=== PATIENT | female | born 1990 | race American Indian/Alaskan Native ===

== ENCOUNTER 2017-03-16 10:50 | Emergency (ER) | payer SELFPAY ==
[2017-03-16] MEDS ORDERED: TYLENOL PO ONE (12:45)
[2017-03-16 13:51] LABS: Bacteria,Urine 1+ /HPF (Negative); Bilirubin,Urine NEG (Negative); Blood,Urine LG (Negative); Ketones,Urine NEG (Negative); Leukocyte Esterase,Urine LG (Negative); Nitrite,Urine NEG (Negative)
[2017-03-16 13:54] LABS: WBC,Urine > 182.0 /HPF (0.0-6.0)
[2017-03-16] MEDS ORDERED: NACL 0.9% 1000 ML 1,000 ML IV ONE (15:55)
[2017-03-16] MEDS ORDERED: TORADOL IV ONE (15:55)
[2017-03-16 16:30] LABS: Basophils % (Auto) 0.5 % (0.0-1.8); Eosinophils % (Auto) 0.1 % (0.0-4.3); Hematocrit 36.3 % (30.3-42.9); Hemoglobin 11.9 gm/dl (10.1-14.3); Mean Corpuscular HGB Conc 33 % (30-34); Mean Corpuscular Hemoglobin 30 pg (28-32); Mean Corpuscular Volume 90 fl (79-97); Platelet Count 257 K/mm3 (140-440); Red Blood Count 4.03 M/mm3 (3.65-5.03); Red Cell Distribution Width 14.5 % (13.2-15.2); White Blood Count 14.6 K/mm3 (4.5-11.0)
[2017-03-16] MEDS ORDERED: KEFLEX PO ONE (16:30)
--- NOTE | 2017-03-16 16:34 | Emergency Department Report ---
- General Chief Complaint: Upper Respiratory Infection Stated Complaint: FLU LIKE SYMPTOMS Time Seen by Provider: 03/16/17 15:49 Source: patient Mode of arrival: Ambulatory Limitations: No Limitations - History of Present Illness Initial Comments: 27-year-old female with a past medical history of hyperthyroidism (subclinical and not currently on medication) presents to the hospital with complaints of flulike symptoms for the past 4-5 days. Positive cough productive of yellow sputum, intermittent fevers, decreased food intake for the past 2 days. Yesterday patient had an episode of profuse sweating and near-syncope. She does not obtain a sneeze at this time. She complains of anterior chest pain with coughing that improved at the taken Tylenol. Last night patient had several episodes of vomiting. No diarrhea or abdominal pain reported. No sick contacts or recent travel. Patient is currently on her menstrual cycle. She did not receive a flu shot - Related Data Previous Rx's Medication Instructions Recorded Last Taken Type Loratadine [Claritin] 10 mg PO DAILY #30 tablet 03/03/13 Unknown Rx RX: Prednisone 20 mg PO QDAY #5 tablet 03/03/13 Unknown Rx RX: Triamcinolone 0.1% [Kenalog 1 applic TP TID #60 tube 03/03/13 Unknown Rx 0.1% CREAM] hydrOXYzine HCL [Atarax] 25 mg PO Q6HR PRN #30 tablet 03/03/13 Unknown Rx Benzonatate [Tessalon Perles] 100 mg PO Q8HR #30 capsule 03/16/17 Unknown Rx Cephalexin [Keflex] 500 mg PO Q12HR #14 cap 03/16/17 Unknown Rx Ibuprofen [Motrin] 600 mg PO Q8H PRN #30 tablet 03/16/17 Unknown Rx Ondansetron [Zofran Odt] 4 mg PO Q8HR PRN #20 tab.rapdis 03/16/17 Unknown Rx Allergies Allergy/AdvReac Type Severity Reaction Status Date / Time No Known Allergies Allergy Unverified 03/03/13 08:46 ED Review of Systems ROS: Stated complaint: FLU LIKE SYMPTOMS Other details as noted in HPI Comment: All other systems reviewed and negative Other: Constitutional: As per HPI ENT: No ear pain or throat pain Neck: Denies pain Respiratory:as per hpi Cardiovascular: Denies palpitations, syncope GI: Denies abdominal pain, diarrhea : Denies dysuria Musculoskeletal: Denies back pain, joint swelling Skin: Denies rash, lesions, erythema Neurologic: Denies headache, numbness, weakness Psychiatric: Denies suicidal ideation, hallucinations ED Past Medical Hx - Past Medical History Previous Medical History?: Yes Additional medical history: hyperthyroidism, eczema - Surgical History Past Surgical History?: Yes Additional Surgical History: x 2 - Social History Smoking Status: Former Smoker Substance Use Type: Alcohol, Marijuana, Prescribed, Other - Medications Home Medications: Home Medications Medication Instructions Recorded Confirmed Last Taken Type Loratadine [Claritin] 10 mg PO DAILY #30 tablet 03/03/13 Unknown Rx RX: Prednisone 20 mg PO QDAY #5 tablet 03/03/13 Unknown Rx RX: Triamcinolone 0.1% [Kenalog 1 applic TP TID #60 tube 03/03/13 Unknown Rx 0.1% CREAM] hydrOXYzine HCL [Atarax] 25 mg PO Q6HR PRN #30 tablet 03/03/13 Unknown Rx Benzonatate [Tessalon Perles] 100 mg PO Q8HR #30 capsule 03/16/17 Unknown Rx Cephalexin [Keflex] 500 mg PO Q12HR #14 cap 03/16/17 Unknown Rx Ibuprofen [Motrin] 600 mg PO Q8H PRN #30 tablet 03/16/17 Unknown Rx Ondansetron [Zofran Odt] 4 mg PO Q8HR PRN #20 tab.rapdis 03/16/17 Unknown Rx ED Physical Exam - General Limitations: No Limitations - Other Other exam information: General: No limitations, patient is alert in no acute distress Head exam: Atraumatic, normocephalic Eyes exam: Normal appearance, pupils equal reactive to light, extraocular movements intact ENT: Moist mucous membrane, normal oropharynx, no exudate Neck exam: Normal inspection, full range of motion, no meningismus nontender Respiratory exam: Clear to auscultation bilateral, no wheezes, rales, crackles Cardiovascular: Normal rate and rhythm, normal heart sounds Abdomen: Soft, nondistended, and nontender, with normal bowel sounds, no rebound, or guarding Extremity: Full range of motion normal inspection no deformity Back: Normal Inspection, full range of motion, no tenderness Neurologic: Alert, oriented x3, cranial nerves intact, no motor or sensory deficit Psychiatric: normal affect, normal mood Skin: Warm, dry, intact ED Course Vital Signs 03/16/17 03/16/17 03/16/17 12:40 16:29 17:55 Temperature 100.7 F H 98.1 F 97.9 F Pulse Rate 107 H 95 H Respiratory 16 16 Rate Blood Pressure 112/80 Blood Pressure 117/79 [Right] O2 Sat by Pulse 100 100 Oximetry - Reevaluation(s) Reevaluation #1: 03/16/17 16:34 Patient treated with normal saline, Toradol, Keflex ED Medical Decision Making - Lab Data Result diagrams: 03/16/17 12:45 03/16/17 12:45 Lab Results 03/16/17 03/16/17 03/16/17 Range/Units 12:45 12:45 13:27 WBC 14.6 H (4.5-11.0) K/mm3 RBC 4.03 (3.65-5.03) M/mm3 Hgb 11.9 (10.1-14.3) gm/dl Hct 36.3 (30.3-42.9) % MCV 90 (79-97) fl MCH 30 (28-32) pg MCHC 33 (30-34) % RDW 14.5 (13.2-15.2) % Plt Count 257 (140-440) K/mm3 Lymph % (Auto) 12.6 L (13.4-35.0) % [place] % (Auto) 14.7 H (0.0-7.3) % Eos % (Auto) 0.1 (0.0-4.3) % Baso % (Auto) 0.5 (0.0-1.8) % Lymph # 1.8 (1.2-5.4) K/mm3 Independence # 2.2 H (0.0-0.8) K/mm3 Eos # 0.0 (0.0-0.4) K/mm3 Baso # 0.1 (0.0-0.1) K/mm3 Seg Neutrophils % 72.1 H (40.0-70.0) % Seg Neutrophils # 10.5 H (1.8-7.7) K/mm3 Sodium 136 L (137-145) mmol/L Potassium 3.3 L (3.6-5.0) mmol/L Chloride 95.7 L (98-107) mmol/L Carbon Dioxide 23 (22-30) mmol/L Anion Gap 21 mmol/L BUN 7 (7-17) mg/dL Creatinine 0.8 (0.7-1.2) mg/dL Estimated GFR > 60 ml/min BUN/Creatinine Ratio 9 % Glucose 109 H (65-100) mg/dL Calcium 9.2 (8.4-10.2) mg/dL Total Bilirubin (0.1-1.2) mg/dL Direct Bilirubin (0-0.2) mg/dL Indirect Bilirubin mg/dL AST (5-40) units/L ALT (7-56) units/L Alkaline Phosphatase (35-129) units/L Total Protein (6.3-8.2) g/dL Albumin (3.9-5) g/dL Albumin/Globulin Ratio % Urine Color Yellow (Yellow) Urine Turbidity Clear (Clear) Urine pH 6.0 (5.0-7.0) Ur Specific Rewey 1.006 (1.003-1.030) Urine Protein 30 mg/dl (Negative) mg/dL Urine Glucose (UA) Neg (Negative) mg/dL Urine Ketones Neg (Negative) mg/dL Urine Blood Lg (Negative) Urine Nitrite Neg (Negative) Urine Bilirubin Neg (Negative) Urine Urobilinogen 4.0 (<2.0) mg/dL Ur Leukocyte Esterase Lg (Negative) Urine WBC (Auto) > 182.0 H (0.0-6.0) /HPF Urine RBC (Auto) 13.0 (0.0-6.0) /HPF U Epithel Cells (Auto) 10.0 (0-13.0) /HPF Urine Bacteria (Auto) 1+ (Negative) /HPF Ur Transition Epith Cell 1 /HPF Urine Yeast (Budding) 2+ /HPF Urine HCG, Qual (Negative) 03/16/17 03/16/17 Range/Units 13:27 16:08 WBC (4.5-11.0) K/mm3 RBC (3.65-5.03) M/mm3 Hgb (10.1-14.3) gm/dl Hct (30.3-42.9) % MCV (79-97) fl MCH (28-32) pg MCHC (30-34) % RDW (13.2-15.2) % Plt Count (140-440) K/mm3 Lymph % (Auto) (13.4-35.0) % Independence % (Auto) (0.0-7.3) % Eos % (Auto) (0.0-4.3) % Baso % (Auto) (0.0-1.8) % Lymph # (1.2-5.4) K/mm3 Independence # (0.0-0.8) K/mm3 Eos # (0.0-0.4) K/mm3 Baso # (0.0-0.1) K/mm3 Seg Neutrophils % (40.0-70.0) % Seg Neutrophils # (1.8-7.7) K/mm3 Sodium (137-145) mmol/L Potassium (3.6-5.0) mmol/L Chloride (98-107) mmol/L Carbon Dioxide (22-30) mmol/L Anion Gap mmol/L BUN (7-17) mg/dL Creatinine (0.7-1.2) mg/dL Estimated GFR ml/min BUN/Creatinine Ratio % Glucose (65-100) mg/dL Calcium (8.4-10.2) mg/dL Total Bilirubin 1.10 (0.1-1.2) mg/dL Direct Bilirubin 0.2 (0-0.2) mg/dL Indirect Bilirubin 0.9 mg/dL AST 18 (5-40) units/L ALT 11 (7-56) units/L Alkaline Phosphatase 63 (35-129) units/L Total Protein 8.1 (6.3-8.2) g/dL Albumin 4.2 (3.9-5) g/dL Albumin/Globulin Ratio 1.1 % Urine Color (Yellow) Urine Turbidity (Clear) Urine pH (5.0-7.0) Ur Specific Rewey (1.003-1.030) Urine Protein (Negative) mg/dL Urine Glucose (UA) (Negative) mg/dL Urine Ketones (Negative) mg/dL Urine Blood (Negative) Urine Nitrite (Negative) Urine Bilirubin (Negative) Urine Urobilinogen (<2.0) mg/dL Ur Leukocyte Esterase (Negative) Urine WBC (Auto) (0.0-6.0) /HPF Urine RBC (Auto) (0.0-6.0) /HPF U Epithel Cells (Auto) (0-13.0) /HPF Urine Bacteria (Auto) (Negative) /HPF Ur Transition Epith Cell /HPF Urine Yeast (Budding) /HPF Urine HCG, Qual Negative (Negative) influenza neg - EKG Data -: EKG Interpreted by Me EKG shows normal: sinus rhythm, axis (qrs 24), QRS complexes (99), ST-T waves ( no stemi/t inv) Rate: normal - EKG Data When compared to previous EKG there are: previous EKG unavailable - Radiology Data Radiology results: image reviewed (cxr: naf) - Medical Decision Making Chest x-ray unremarkable, no leukocytosis, I suspect viral syndrome. Improvement with each treatment. Potassium supplemented. UA reveals significant increased WBC count however, patient is on menstrual cycle. She denies urinary symptoms since were unable to obtain a clean-catch at this time we will cover with antibiotics for UTI. Pt drinking plenty of fluid in ed - Differential Diagnosis bronchitis, viral syndrome, pneumonia, UTI, dehydration, anemia, vasovagal Critical Care Time: No Critical care attestation.: If time is entered above; I have spent that time in minutes in the direct care of this critically ill patient, excluding procedure time. ED Disposition Clinical Impression: Viral syndrome, Hypokalemia, Urine WBC increased Disposition: TO HOME OR SELFCARE Is pt being admited?: No Does the pt Need Aspirin: No Condition: Stable Instructions: Urinary Tract Infection in Women (ED), Hypokalemia (ED), Viral Syndrome (ED) Additional Instructions: Take the medication as prescribed. Follow up with your doctor or the doctor/ clinic provided. Return if symptoms worsen. Prescriptions: Benzonatate [Tessalon Perles] 100 mg PO Q8HR #30 capsule Cephalexin [Keflex] 500 mg PO Q12HR #14 cap Ibuprofen [Motrin] 600 mg PO Q8H PRN #30 tablet PRN Reason: Pain Ondansetron [Zofran Odt] 4 mg PO Q8HR PRN #20 tab.rapdis PRN Reason: Nausea And Vomiting Referrals: PRIMARY CAREMD [Primary Care Provider] - 3-[address] [facility] [Provider Group] - 3-5 Days MAGGIE SPARKS MD [Staff Physician] - 3-5 Days Time of Disposition: 18:01
[2017-03-16 16:53] LABS: Albumin 4.2 g/dL (3.9-5); Albumin/Globulin Ratio 1.1 %; Bilirubin,Direct 0.2 mg/dL (0-0.2); Bilirubin,Indirect 0.9 mg/dL; Bilirubin,Total 1.1 mg/dL (0.1-1.2); Total Protein 8.1 g/dL (6.3-8.2)
[2017-03-16] MEDS ORDERED: ROCEPHIN/NS 1 GM/50 ML 1 GM/50 ML BAG IV ONE (17:00)
[2017-03-16 17:27] LABS: Anion Gap 21 mmol/L; BUN/Creatinine Ratio 9; Blood Urea Nitrogen 7 mg/dL (7-17); Calcium 9.2 mg/dL (8.4-10.2); Carbon Dioxide 23 mmol/L (22-30); Chloride 95.7 mmol/L (98-107); Glucose 109 mg/dL (65-100); Potassium 3.3 mmol/L (3.6-5.0); Sodium 136 mmol/L (137-145)
[2017-03-16] MEDS ORDERED: K-DUR PO ONE (17:30)
[2017-03-16 18:17] VITALS: BP 100/68
--- NOTE | 2017-03-17 07:22 | XRay Report ---
ROUTINE CHEST, TWO VIEWS: History: Cough and fever. PA and lateral views demonstrate the heart and mediastinal contour to be of normal size and shape. The lungs are clear and fully expanded and the soft tissues and bony structures are normal. IMPRESSION: Normal study.
== END 2017-03-16 18:16 | disposition home or self-care (01) ==
LOC: ED 10:50
DX: B34.9 Viral infection, unspecified (principal); E87.6 Hypokalemia; R82.5 Elevated urine levels of drugs, medicaments and biological substances; F12.10 Cannabis abuse, uncomplicated; E05.90 Thyrotoxicosis, unspecified without thyrotoxic crisis or storm
CPT/HCPCS: 36415; 71020; 80048; 80074; 81001; 81025; 85025; 87400; 93005; 93010; 96361; 96374; 99284; J1885; J7030; J0696

== ENCOUNTER 2017-12-06 12:45 | Emergency (ER) | payer OTHER ==
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
[2017-12-06] MEDS ORDERED: MOTRIN PO ONE (14:34)
--- NOTE | 2017-12-06 16:50 | Cat Scan Report ---
FINAL REPORT PROCEDURE: CT FACIAL BONES WO CON TECHNIQUE: Computerized tomography of the facial bones and soft tissues with axial and coronal sections performed from the cranial aspect of the frontal sinuses to the caudal portion of the mandible without contrast material. HISTORY: fall with nasal swelling, pain, missing incisors COMPARISON: No prior studies are available for comparison. FINDINGS: There is mild cortical irregularity in the left side of the nasal bone on image 36 series 4 although I do not see a discrete fracture line. Correlation with physical exam is recommended to exclude acute fracture in this area. The orbits, the zygomas and zygomatic arches as well as the shah of the paranasal sinuses and mandible appear intact. Metallic density is present in the patient's tongue which I suspect represents body jewelry. There is nodular mucosal thickening in both maxillary sinuses. There is a large smooth nodular density in the inferior aspect of the right maxillary sinus measuring approximately 3.4 centimeters suggesting a mucous retention cyst. There is nodular mucosal thickening in the medial aspect of the right frontal sinus. Paranasal sinuses otherwise are clear. IMPRESSION: Mild cortical irregularity left side of the nasal bone as described. Please see above image reference. Correlation with physical exam recommended to exclude an acute fracture. This could represent an old fracture. No other fractures are suspected. Moderate paranasal sinus disease as described.
[2017-12-06 17:44] VITALS: BP 128/76
== END 2017-12-06 19:10 | disposition home or self-care (01) ==
LOC: ED 12:45
DX: S02.2XXA Fracture of nasal bones, initial encounter for closed fracture (principal); S01.511A Laceration without foreign body of lip, initial encounter; J32.0 Chronic maxillary sinusitis; J33.8 Other polyp of sinus; F17.200 Nicotine dependence, unspecified, uncomplicated; E05.90 Thyrotoxicosis, unspecified without thyrotoxic crisis or storm; Z79.899 Other long term (current) drug therapy; W17.89XA Other fall from one level to another, initial encounter; Y93.89 Activity, other specified; Y99.8 Other external cause status; Y92.59 Other trade areas as the place of occurrence of the external cause
CPT/HCPCS: 70486

== ENCOUNTER 2019-02-20 05:46 | Emergency (ER) | payer SELFPAY ==
[2019-02-20 05:56] VITALS: BP 144/93
[2019-02-20] MEDS ORDERED: metroNIDAZOLE 500 MG TAB PO ONE (06:38)
[2019-02-20] MEDS ORDERED: LIDOCAINE-MPF (1%) 10 MG/1 ML VIAL 5 ML INFILTRATI ONE (06:38)
[2019-02-20] MEDS ORDERED: AZITHROMYCIN 250 MG TAB PO ONE (06:38)
--- NOTE | 2019-02-20 06:44 | Emergency Department Report ---
ED Female HPI - General Chief complaint: Urogenital-Female Stated complaint: STD/VAGINAL DISCHARGE Time Seen by Provider: 02/20/19 06:38 Source: patient Mode of arrival: Ambulatory Limitations: No Limitations - History of Present Illness Initial comments: Patient is a 29-year-old -[place] female who presents for vaginal discharge advises partner visor today that she recently treated for an STD. Patient states that his discharges white cottage cheese like with some malodor. There is no fever no chills no nausea vomiting no abdominal pain no back pain last menstrual period 2 weeks ago. Complaint: vaginal discharge Onset/Timin -: days(s) Radiation: non-radiating Severity: moderate Severity scale (0 -10): 3 Quality: other (irritation ) Consistency: constant Improves with: none Worsens with: none Are you Now?: No Last Menstrual Period: 02/08/19 EDC: 11/15/19 Associated Symptoms: vaginal discharge - Related Data Sexually active: Yes : 3 Para: 3 A: 0 Previous Rx's Medication Instructions Recorded Last Taken Type Prednisone 20 mg PO QDAY #5 tablet 03/03/13 Unknown Rx Triamcinolone 0.1% [Kenalog 0.1% 1 applic TP TID #60 tube 03/03/13 Unknown Rx CREAM] hydrOXYzine HCL [Atarax] 25 mg PO Q6HR PRN #30 tablet 03/03/13 Unknown Rx Benzonatate [Tessalon Perles] 100 mg PO Q8HR #30 capsule 03/16/17 Unknown Rx Ondansetron [Zofran Odt] 4 mg PO Q8HR PRN #20 tab.rapdis 03/16/17 Unknown Rx cephALEXin [Keflex] 500 mg PO Q12HR #14 cap 03/16/17 Unknown Rx Fluticasone [Flonase] 1 spray NS QDAY 14 Days #1 bottle 12/06/17 Unknown Rx Ibuprofen [Motrin 600 MG tab] 600 mg PO Q8H PRN #15 tablet 12/06/17 Unknown Rx Loratadine [Claritin] 10 mg PO DAILY 15 Days #15 tablet 12/06/17 Unknown Rx cephALEXin [Keflex] 500 mg PO Q8HR 10 Days #30 cap 12/06/17 Unknown Rx Fluconazole [Diflucan TAB] 150 mg PO ONCE #1 tablet 02/20/19 Unknown Rx Allergies Allergy/AdvReac Type Severity Reaction Status Date / Time No Known Allergies Allergy Unverified 03/03/13 08:46 ED Review of Systems ROS: Stated complaint: STD/VAGINAL DISCHARGE Other details as noted in HPI Constitutional: denies: chills, fever Eyes: denies: eye pain, eye discharge, vision change ENT: denies: ear pain, throat pain Respiratory: denies: cough, shortness of breath, wheezing Cardiovascular: denies: chest pain, palpitations Endocrine: no symptoms reported Gastrointestinal: denies: abdominal pain, nausea, diarrhea Genitourinary: discharge. denies: urgency, dysuria, frequency, hematuria Musculoskeletal: denies: back pain, joint swelling, arthralgia Skin: denies: rash, lesions Neurological: denies: headache, weakness, paresthesias Psychiatric: denies: anxiety, depression Hematological/Lymphatic: denies: easy bleeding, easy bruising ED Past Medical Hx - Past Medical History Previous Medical History?: Yes Additional medical history: hyperthyroidism, eczema, Low BP - Surgical History Past Surgical History?: Yes Additional Surgical History: x 2 - Social History Smoking Status: Current Every Day Smoker Substance Use Type: Alcohol, Marijuana - Medications Home Medications: Home Medications Medication Instructions Recorded Confirmed Last Taken Type Prednisone 20 mg PO QDAY #5 tablet 03/03/13 Unknown Rx Triamcinolone 0.1% [Kenalog 0.1% 1 applic TP TID #60 tube 03/03/13 Unknown Rx CREAM] hydrOXYzine HCL [Atarax] 25 mg PO Q6HR PRN #30 tablet 03/03/13 Unknown Rx Benzonatate [Tessalon Perles] 100 mg PO Q8HR #30 capsule 03/16/17 Unknown Rx Ondansetron [Zofran Odt] 4 mg PO Q8HR PRN #20 tab.rapdis 03/16/17 Unknown Rx cephALEXin [Keflex] 500 mg PO Q12HR #14 cap 03/16/17 Unknown Rx Fluticasone [Flonase] 1 spray NS QDAY 14 Days #1 bottle 12/06/17 Unknown Rx Ibuprofen [Motrin 600 MG tab] 600 mg PO Q8H PRN #15 tablet 12/06/17 Unknown Rx Loratadine [Claritin] 10 mg PO DAILY 15 Days #15 tablet 07/29/18 Unknown Rx cephALEXin [Keflex] 500 mg PO Q8HR 10 Days #30 cap 12/06/17 Unknown Rx Fluconazole [Diflucan TAB] 150 mg PO ONCE #1 tablet 02/20/19 Unknown Rx ED Physical Exam - General Limitations: No Limitations General appearance: alert, in no apparent distress - Head Head exam: Present: atraumatic, normocephalic - Eye Eye exam: Present: normal appearance, PERRL, EOMI Pupils: Present: normal accommodation - ENT ENT exam: Present: mucous membranes moist - Neck Neck exam: Present: normal inspection, full ROM - Respiratory Respiratory exam: Present: normal lung sounds bilaterally. Absent: respiratory distress, wheezes, stridor, chest wall tenderness - Cardiovascular Cardiovascular Exam: Present: regular rate, normal rhythm, normal heart sounds. Absent: systolic murmur, diastolic murmur, rubs, gallop - GI/Abdominal GI/Abdominal exam: Present: soft, normal bowel sounds. Absent: distended, tenderness, bruit, hernia - Rectal Rectal exam: Present: deferred - External exam: Present: normal external exam Speculum exam: Present: erythema, vaginal discharge (white thick ). Absent: cervical discharge, vaginal bleeding, foreign body, tissue, laceration Bi-manual exam: Absent: cervical motion tendernes - Extremities Exam Extremities exam: Present: normal inspection, full ROM. Absent: tenderness - Back Exam Back exam: Present: normal inspection, full ROM. Absent: tenderness, CVA tenderness (R), CVA tenderness (L), rash noted - Neurological Exam Neurological exam: Present: alert, oriented X3 - Psychiatric Psychiatric exam: Present: normal affect, normal mood - Skin Skin exam: Present: warm, dry, intact, normal color. Absent: rash ED Course Vital Signs 02/20/19 05:53 Temperature 98.5 F Pulse Rate 111 H Respiratory 20 Rate Blood Pressure 144/93 O2 Sat by Pulse 99 Oximetry ED Medical Decision Making - Medical Decision Making plan, tx for STI exposure, pt given rocephin and azithromycin in ed, if not will receive flagyl po 2gm, if Flagyl Gel intravaginal, pt will follow up with Health department for HIV, HSV, and Syphilis screening. Will return o 3 days for GC/Ch Culture results. pt verbalized agreement and understanding with discharge plan. Critical care attestation.: If time is entered above; I have spent that time in minutes in the direct care of this critically ill patient, excluding procedure time. ED Disposition Clinical Impression: Exposure to STD Vaginitis Qualifiers: Chronicity: acute Qualified Code(s): N76.0 - Acute vaginitis Disposition: - TO HOME OR SELFCARE Is pt being admited?: No Does the pt Need Aspirin: No Condition: Stable Instructions: Sexually Transmitted Diseases (ED), Vaginitis (ED) Additional Instructions: Follow up with [facility] in 2-3 days for HIV , syphilis, and HSV screening as dicusded. Return in 3 days for results of Gonorrhea and Chlamydia Cultures. Prescriptions: Fluconazole [Diflucan TAB] 150 mg PO ONCE #1 tablet Referrals: [facility] [Outside] - 3-5 Days Forms: Work/School Release Form(ED) Time of Disposition: 06:54
[2019-02-20 07:19] LABS: Bilirubin,Urine NEG (Negative); Color,Urine Yellow (Yellow)
[2019-02-20 07:20] LABS: Bacteria,Urine 1+ /HPF (Negative); Blood,Urine NEG (Negative); HCG Qualitative,Urine Negative (Negative); Mucus,Urine FEW /HPF; Protein,Urine <15 mg/dL mg/dL (Negative)
== END 2019-02-20 07:51 | disposition home or self-care (01) ==
LOC: ED 05:46
DX: N76.0 Acute vaginitis (principal); E05.90 Thyrotoxicosis, unspecified without thyrotoxic crisis or storm; F17.200 Nicotine dependence, unspecified, uncomplicated; F12.10 Cannabis abuse, uncomplicated; Z20.2 Contact with and (suspected) exposure to infections with a predominantly sexual mode of transmission; Z79.899 Other long term (current) drug therapy
CPT/HCPCS: 81001; 81025; 87086; 87210; 87591; 96372; 99284; J0696

== ENCOUNTER 2019-07-21 17:08 | Emergency (ER) | payer SELFPAY ==
[2019-07-21 20:07] VITALS: BP 126/86
--- NOTE | 2019-07-21 20:07 | Emergency Department Report ---
Chief Complaint: Urogenital-Female Stated Complaint: PREG TEST Time Seen by Provider: 07/21/19 20:02 - HPI History of Present Illness: This is a 29-year-old female nontoxic, well in appearance with no signs of distress presents to the ED for test. Stated had a positive test at home. Denies any vaginal bleeding or pelvic/abdominal pain. Patient stated she is asymptotic. Denies any vaginal discharge, vaginal pain, or swelling. Patient denies any urinary symptoms. Patient denies any fever, chills, headache, nausea, vomiting, chest pain or shortness of breathe. denies any other symptoms or complaints. Denies any allergies or PMH. - Exam Physical Exam: normal physical exam MSE screening note: Focused history and physical exam performed. Due to findings the following was ordered: ED Medical Decision Making - Medical Decision Making This is a 29-year-old female that presents with nonmedical emergency complaint. Patient is just requested for a test. Patient denies any symptoms. Patient was instructed to Follow-up with a OBGYN doctor in 3-5 days or if symptoms worsen and continue return to emergency room as soon as possible. At time of discharge, the patient does not seem toxic or ill in appearance. No acute signs of distress noted. Patient agrees to discharge treatment plan of care. No further questions noted by the patient. ED Disposition for MSE Clinical Impression: Encounter for test, result unknown Disposition: Z-07 MED SCREENING EXAM-LEFT Is pt being admited?: No Does the pt Need Aspirin: No Condition: Stable Additional Instructions: Follow-up with a OBGYN doctor in 3-5 days or if symptoms worsen and continue return to emergency room as soon as possible. Referrals: PRIMARY CARE, [Referring] - 3-5 Days NABEEL SMILEY MD [Staff Physician] - 3-5 Days [facility] [Provider Group] - 3-5 Days
== END 2019-07-21 20:37 | disposition left against medical advice (07) ==
LOC: ED 17:08
DX: Z32.00 Encounter for pregnancy test, result unknown (principal)
CPT/HCPCS: 99282

== ENCOUNTER 2019-08-17 22:46 | Emergency (ER) | payer MEDICAID ==
[2019-08-18] MEDS ORDERED: SODIUM CHLORIDE 0.9% 1000 ML 1,000 ML ONE (02:41)
[2019-08-18] MEDS ORDERED: ONDANSETRON 4 MG/2 ML INJ ONE (02:41)
[2019-08-18] MEDS ORDERED: HYDROmorphone 1 MG/1 ML INJ ONE (02:41)
[2019-08-18] MEDS ORDERED: SODIUM CHLORIDE 0.9% 1000 ML 1,000 ML IV ONE (02:42)
[2019-08-18] MEDS ORDERED: ONDANSETRON 4 MG/2 ML INJ IV ONE (02:42)
[2019-08-18] MEDS ORDERED: HYDROmorphone 1 MG/1 ML INJ IV ONE (02:42)
--- NOTE | 2019-08-18 02:44 | Emergency Department Report ---
ED Abdominal Pain HPI - General Chief Complaint: Abdominal Pain Stated Complaint: 13 WKS PREG/ABD PAIN/NAUSEA/EMESIS Time Seen by Provider: 08/18/19 02:41 Source: patient, EMS Mode of arrival: Ambulatory Limitations: No Limitations - History of Present Illness Initial Comments: Patient is a 29-year-old female that presents emergency room with complaints of abdominal pain. Patient states her abdominal pain is bilateral lower. Patient states she is 13 weeks . Patient states she has not had an ultrasound to confirm . Patient states she had a urine and blood test at her RECEIVING ROOM CLERK's office. Patient states she is scheduled for an ultrasound next week. Patient states that she is also having nausea and vomiting. Patient states not able to hold anything down. Patient states the pain is a 10 out of 10. Pain states the pain is worse with movement better with rest. Patient states the pain is also worse with palpation of her abdomen. Patient states she is a G2, , twins. Patient denies vaginal bleeding. Patient denies vaginal discharge. Patient denies dysuria. Patient denies recent travel. Patient denies recent international travel. Patient denies exposure to the novel coronavirus. Patient denies sick contacts. Patient denies fever and chills. Patient denies cough. Patient denies diarrhea. Patient denies coming in contact with anybody with symptoms of the novel coronavirus. MD Complaint: abdominal pain -: Sudden Location: LLQ, RLQ Radiation: none Migration to: no migration Severity: severe Severity scale (0 -10): 10 Quality: stabbing Consistency: constant - Related Data Previous Rx's Medication Instructions Recorded Last Taken Type Prednisone 20 mg PO QDAY #5 tablet 03/03/13 Unknown Rx Triamcinolone 0.1% [Kenalog 0.1% 1 applic TP TID #60 tube 03/03/13 Unknown Rx CREAM] hydrOXYzine HCL [Atarax] 25 mg PO Q6HR PRN #30 tablet 03/03/13 Unknown Rx Benzonatate [Tessalon Perles] 100 mg PO Q8HR #30 capsule 03/16/17 Unknown Rx cephALEXin [Keflex] 500 mg PO Q12HR #14 cap 03/16/17 Unknown Rx Fluticasone [Flonase] 1 spray NS QDAY 14 Days #1 bottle 12/06/17 Unknown Rx Ibuprofen [Motrin 600 MG tab] 600 mg PO Q8H PRN #15 tablet 12/06/17 Unknown Rx Loratadine (Nf) [Claritin (Nf)] 10 mg PO DAILY 15 Days #15 tablet 12/06/17 Unknown Rx cephALEXin [Keflex] 500 mg PO Q8HR 10 Days #30 cap 12/06/17 Unknown Rx Fluconazole [Diflucan TAB] 150 mg PO ONCE #1 tablet 02/20/19 Unknown Rx Amoxicillin [Amoxicillin TAB] 875 mg PO BID 7 Days #14 tablet 08/18/19 Unknown Rx Ondansetron [Zofran ODT TAB] 4 mg PO Q6HR PRN #20 tab.rapdis 08/18/19 Unknown Rx Allergies Allergy/AdvReac Type Severity Reaction Status Date / Time No Known Allergies Allergy Unverified 03/03/13 08:46 ED Review of Systems ROS: Stated complaint: 13 WKS PREG/ABD PAIN/NAUSEA/EMESIS Other details as noted in HPI Constitutional: denies: chills, fever Eyes: denies: eye pain, eye discharge, vision change ENT: denies: ear pain, throat pain Respiratory: denies: cough, shortness of breath, wheezing Cardiovascular: denies: chest pain, palpitations Endocrine: no symptoms reported Gastrointestinal: abdominal pain, nausea, vomiting. denies: diarrhea Genitourinary: denies: urgency, dysuria, discharge Musculoskeletal: denies: back pain, joint swelling, arthralgia Skin: denies: rash, lesions Neurological: denies: headache, weakness, paresthesias Psychiatric: denies: anxiety, depression Hematological/Lymphatic: denies: easy bleeding, easy bruising ED Past Medical Hx - Past Medical History Previous Medical History?: Yes Additional medical history: hyperthyroidism, eczema, Low BP - Surgical History Past Surgical History?: Yes Additional Surgical History: x 2 - Family History Family history: no significant - Social History Smoking Status: Former Smoker Substance Use Type: None - Medications Home Medications: Home Medications Medication Instructions Recorded Confirmed Last Taken Type Prednisone 20 mg PO QDAY #5 tablet 03/03/13 Unknown Rx Triamcinolone 0.1% [Kenalog 0.1% 1 applic TP TID #60 tube 03/03/13 Unknown Rx CREAM] hydrOXYzine HCL [Atarax] 25 mg PO Q6HR PRN #30 tablet 03/03/13 Unknown Rx Benzonatate [Tessalon Perles] 100 mg PO Q8HR #30 capsule 03/16/17 Unknown Rx cephALEXin [Keflex] 500 mg PO Q12HR #14 cap 03/16/17 Unknown Rx Fluticasone [Flonase] 1 spray NS QDAY 14 Days #1 bottle 12/06/17 Unknown Rx Ibuprofen [Motrin 600 MG tab] 600 mg PO Q8H PRN #15 tablet 12/06/17 Unknown Rx Loratadine (Nf) [Claritin (Nf)] 10 mg PO DAILY 15 Days #15 tablet 12/06/17 Unknown Rx cephALEXin [Keflex] 500 mg PO Q8HR 10 Days #30 cap 12/06/17 Unknown Rx Fluconazole [Diflucan TAB] 150 mg PO ONCE #1 tablet 02/20/19 Unknown Rx Amoxicillin [Amoxicillin TAB] 875 mg PO BID 7 Days #14 tablet 08/18/19 Unknown Rx Ondansetron [Zofran ODT TAB] 4 mg PO Q6HR PRN #20 tab.rapdis 08/18/19 Unknown Rx ED Physical Exam - General Limitations: No Limitations General appearance: alert, in no apparent distress - Head Head exam: Present: atraumatic, normocephalic - Eye Eye exam: Present: normal appearance - ENT ENT exam: Present: mucous membranes moist - Neck Neck exam: Present: normal inspection - Respiratory Respiratory exam: Present: normal lung sounds bilaterally. Absent: respiratory distress - Cardiovascular Cardiovascular Exam: Present: regular rate, normal rhythm. Absent: systolic murmur, diastolic murmur, rubs, gallop - GI/Abdominal GI/Abdominal exam: Present: soft, tenderness, normal bowel sounds - Extremities Exam Extremities exam: Present: normal inspection - Back Exam Back exam: Present: normal inspection - Neurological Exam Neurological exam: Present: alert, oriented X3 - Psychiatric Psychiatric exam: Present: normal affect, normal mood - Skin Skin exam: Present: warm, dry, intact, normal color. Absent: rash ED Course Vital Signs 08/17/19 08/18/19 22:53 05:19 Temperature 98.2 F 98.3 F Pulse Rate 123 H 83 Respiratory 18 15 Rate Blood Pressure 93/46 Blood Pressure 91/56 [Left] O2 Sat by Pulse 100 99 Oximetry - Reevaluation(s) Reevaluation #1: Patient resting. Patient states her pain has resolved. Patient states she is not feeling nauseous. Patient tolerated p.o. intake. 08/18/19 04:16 Reevaluation #2: I discussed all results and clinical findings with patient. I discussed plan of care with patient. Patient agrees with plan of care. Patient is stable for discharge. Patient will be discharged home. Patient given discharge instructions. Patient voiced understanding of discharge instructions. 08/18/19 05:49 ED Medical Decision Making - Lab Data Result diagrams: 08/18/19 02:59 08/18/19 02:59 - Radiology Data Radiology results: report reviewed US OB <= 14 weeks fetus INDICATION / CLINICAL INFORMATION: 13 week preg. abd pain. COMPARISON: None available. FINDINGS: Uterus measures 12.5 cm. A single viable intrauterine gestation is identified with a crown-rump length of 4.6 cm. This corresponds to an 11 week 3 day intrauterine gestation. cardiac activity was observed with a heart rate of 196 bpm Both ovaries are normal. IMPRESSION: 1. Viable single 11 week 3 day intrauterine gestation. - Medical Decision Making Patient is a 29-year-old female that presents emergency room with lower abdominal pain and . Patient's clinical findings are consistent with round ligament pain. Patient had ultrasound done which shows a 11-week IUP. Patient's labs unremarkable except for a UTI. Patient treated with amoxicillin. Patient also given Zofran for nausea vomiting. Patient tolerated p.o. intake after pain meds, fluids and Zofran IV. Patient stable for discharge. Patient discharged home. - Differential Diagnosis Miscarriage, ectopic , round ligament pain, UTI. Critical care attestation.: If time is entered above; I have spent that time in minutes in the direct care of this critically ill patient, excluding procedure time. ED Disposition Clinical Impression: Abdominal pain affecting , Round ligament pain Qualifiers: Weeks of gestation: 11 weeks Qualified Code(s): Z3A.11 - 11 weeks gestation of Abdominal pain Qualifiers: Abdominal location: lower abdomen, unspecified Qualified Code(s): R10.30 - Lower abdominal pain, unspecified Nausea & vomiting Qualifiers: Vomiting type: unspecified Vomiting Intractability: non-intractable Qualified Code(s): R11.2 - Nausea with vomiting, unspecified UTI (urinary tract infection) Qualifiers: Urinary tract infection type: acute cystitis Hematuria presence: with hematuria Qualified Code(s): N30.01 - Acute cystitis with hematuria Disposition: DC- TO HOME OR SELFCARE Is pt being admited?: No Does the pt Need Aspirin: No Condition: Stable Instructions: Threatened Miscarriage (ED), Acute Nausea and Vomiting (ED), Abdominal Pain (ED), Abdominal Pain in (ED) Additional Instructions: Patient to follow-up with primary care in 2 to 3 days. Patient to follow-up with RECEIVING ROOM CLERK in 2 to 3 days. Patient to rest. Patient to increase water. Patient to avoid strenuous exercise or heavy lifting until cleared by RECEIVING ROOM CLERK. Nothing per vagina until cleared by RECEIVING ROOM CLERK. Patient to eat a brat diet patient to take Tylenol as needed for pain. Patient to take meds as directed. Patient to return to the ER if condition worsens, changes or new symptoms arise. Prescriptions: Amoxicillin [Amoxicillin TAB] 875 mg PO BID 7 Days #14 tablet Ondansetron [Zofran ODT TAB] 4 mg PO Q6HR PRN #20 tab.rapdis PRN Reason: Nausea And Vomiting Referrals: PRIMARY CARE, [Primary Care Provider] - 2-3 Days Time of Disposition: 05:15
[2019-08-18 03:32] LABS: Basophils % (Auto) 0.4 % (0.0-1.8); Eosinophils % (Auto) 0.2 % (0.0-4.3); Hematocrit 34.5 % (30.3-42.9); Hemoglobin 11.4 gm/dl (10.1-14.3); Lymphocytes # (Auto) 1.3 K/mm3 (1.2-5.4); Lymphocytes % (Auto) 15.6 % (13.4-35.0); Mean Corpuscular HGB Conc 33 % (30-34); Mean Corpuscular Volume 88 fl (79-97); Monocytes % (Auto) 11.4 % (0.0-7.3); Platelet Count 282 K/mm3 (140-440); Red Blood Count 3.94 M/mm3 (3.65-5.03); Red Cell Distribution Width 14.1 % (13.2-15.2)
[2019-08-18 03:46] LABS: Alanine Aminotransferase 12 units/L (7-56); Albumin 3.9 g/dL (3.9-5); BUN/Creatinine Ratio 9; Bilirubin,Direct < 0.2 mg/dL (0-0.2); Blood Urea Nitrogen 6 mg/dL (7-17); Calcium 9.7 mg/dL (8.4-10.2); Hemolysis Index 0
--- NOTE | 2019-08-18 04:01 | Ultrasound Report ---
US OB <= 14 weeks fetus INDICATION / CLINICAL INFORMATION: 13 week preg. abd pain. COMPARISON: None available. FINDINGS: Uterus measures 12.5 cm. A single viable intrauterine gestation is identified with a crown-rump length of 4.6 cm. This corresp onds to an 11 week 3 day intrauterine gestation. cardiac activity was observed with a heart rate of 196 bpm Both ovaries are normal. IMPRESSION: 1. Viable single 11 week 3 day intrauterine gestation. Signer Name: Anish Dominguez MD Signed: 08/18/2019 3:56 AM Workstation Name: [id number]
[2019-08-18 05:20] VITALS: BP 91/56
[2019-08-18 05:29] LABS: Bacteria,Urine 1+ /HPF (Negative); Bilirubin,Urine NEG (Negative); Blood,Urine SM (Negative); Color,Urine Yellow (Yellow); Mucus,Urine FEW /HPF
[2019-08-18 05:35] LABS: WBC,Urine > 182.0 /HPF (0.0-6.0)
== END 2019-08-18 05:50 | disposition home or self-care (01) ==
LOC: ED 22:46
DX: O26.891 Other specified pregnancy related conditions, first trimester (principal); O23.41 Unspecified infection of urinary tract in pregnancy, first trimester; O21.8 Other vomiting complicating pregnancy; R10.32 Left lower quadrant pain; R10.31 Right lower quadrant pain; E05.90 Thyrotoxicosis, unspecified without thyrotoxic crisis or storm; L30.9 Dermatitis, unspecified; F17.200 Nicotine dependence, unspecified, uncomplicated; Z3A.11 11 weeks gestation of pregnancy; Z98.890 Other specified postprocedural states; Z79.1 Long term (current) use of non-steroidal anti-inflammatories (NSAID); Z79.2 Long term (current) use of antibiotics; Z79.899 Other long term (current) drug therapy
CPT/HCPCS: 36415; 76801; 80048; 80076; 81001; 84702; 85025; 96361; 96374; 96375; 99285; J1170; J2405; J7030

== ENCOUNTER 2019-09-17 16:17 | Emergency (ER) | payer MEDICAID ==
--- NOTE | 2019-09-17 16:36 | Emergency Department Report ---
<YESSENIA ANGLIN - Last Filed: 09/17/19 18:16> ED HPI - General Chief complaint: Vaginal Bleeding Stated complaint: 12 WKS /BLEEDING/CRAMPS Time Seen by Provider: 09/17/19 16:35 Source: patient Mode of arrival: Ambulatory Limitations: No Limitations - History of Present Illness Initial comments: 29-year-old -[place] female who is approximately 15 weeks presents to the emergency room for vaginal spotting and cramping. Patient states that she is seeing light pink on underwear tissue Thursday she also complains of constipation. She is 3 para 3 patient is seen by [facility] in [place]. Complaint: vaginal bleeding Severity scale (0 -10): 5 Quality: cramping Consistency: intermittent Improves with: none Worsens with: none Associated symptoms: vaginal bleeding, abdominal pain. denies: nausea/vomiting, vaginal discharge, headache, shortness of breath Vaginal bleeding: light :: Yes Number of weeks : 15 - Related Data : 3 Para: 3 Previous Rx's Medication Instructions Recorded Last Taken Type Prednisone 20 mg PO QDAY #5 tablet 03/03/13 Unknown Rx Triamcinolone 0.1% [Kenalog 0.1% 1 applic TP TID #60 tube 03/03/13 Unknown Rx CREAM] hydrOXYzine HCL [Atarax] 25 mg PO Q6HR PRN #30 tablet 03/03/13 Unknown Rx Benzonatate [Tessalon Perles] 100 mg PO Q8HR #30 capsule 03/16/17 Unknown Rx cephALEXin [Keflex] 500 mg PO Q12HR #14 cap 03/16/17 Unknown Rx Fluticasone [Flonase] 1 spray NS QDAY 14 Days #1 bottle 12/06/17 Unknown Rx Ibuprofen [Motrin 600 MG tab] 600 mg PO Q8H PRN #15 tablet 12/06/17 Unknown Rx Loratadine (Nf) [Claritin (Nf)] 10 mg PO DAILY 15 Days #15 tablet 12/06/17 Unknown Rx cephALEXin [Keflex] 500 mg PO Q8HR 10 Days #30 cap 12/06/17 Unknown Rx Fluconazole [Diflucan TAB] 150 mg PO ONCE #1 tablet 02/20/19 Unknown Rx Amoxicillin [Amoxicillin TAB] 875 mg PO BID 7 Days #14 tablet 08/18/19 Unknown Rx Ondansetron [Zofran ODT TAB] 4 mg PO Q6HR PRN #20 tab.rapdis 08/18/19 Unknown Rx Allergies Allergy/AdvReac Type Severity Reaction Status Date / Time No Known Allergies Allergy Unverified 03/03/13 08:46 ED Review of Systems Comment: All other systems reviewed and negative ED Past Medical Hx - Past Medical History Previous Medical History?: Yes Hx Hypertension: No Hx CVA: No Hx Heart Attack/AMI: No Hx Congestive Heart Failure: No Hx Diabetes: No Hx Deep Vein Thrombosis: No Hx Pulmonary Embolism: No Hx GERD: No Hx Liver Disease: No Hx Renal Disease: No Hx of Cancer: No Hx Sickle Cell Disease: No Hx Arthritis: No Hx Headaches / Migraines: No Hx Seizures: No Hx Kidney Stones: No Hx Psychiatric Treatment: No Hx Asthma: No Hx COPD: No Hx Tuberculosis: No Hx Dementia: No Hx HIV: No Additional medical history: hyperthyroidism, eczema, Low BP - Surgical History Past Surgical History?: Yes Hx Coronary Stent: No Hx Open Heart Surgery: No Hx Pacemaker: No Hx Internal Defibrillator: No Hx Cholecystectomy: No Hx Appendectomy: No Hx Breast Surgery: No Additional Surgical History: x 2 - Social History Smoking Status: Never Smoker Substance Use Type: None - Medications Home Medications: Home Medications Medication Instructions Recorded Confirmed Last Taken Type Prednisone 20 mg PO QDAY #5 tablet 03/03/13 Unknown Rx Triamcinolone 0.1% [Kenalog 0.1% 1 applic TP TID #60 tube 03/03/13 Unknown Rx CREAM] hydrOXYzine HCL [Atarax] 25 mg PO Q6HR PRN #30 tablet 03/03/13 Unknown Rx Benzonatate [Tessalon Perles] 100 mg PO Q8HR #30 capsule 03/16/17 Unknown Rx cephALEXin [Keflex] 500 mg PO Q12HR #14 cap 03/16/17 Unknown Rx Fluticasone [Flonase] 1 spray NS QDAY 14 Days #1 bottle 12/06/17 Unknown Rx Ibuprofen [Motrin 600 MG tab] 600 mg PO Q8H PRN #15 tablet 12/06/17 Unknown Rx Loratadine (Nf) [Claritin (Nf)] 10 mg PO DAILY 15 Days #15 tablet 12/06/17 Unknown Rx cephALEXin [Keflex] 500 mg PO Q8HR 10 Days #30 cap 12/06/17 Unknown Rx Fluconazole [Diflucan TAB] 150 mg PO ONCE #1 tablet 02/20/19 Unknown Rx Amoxicillin [Amoxicillin TAB] 875 mg PO BID 7 Days #14 tablet 08/18/19 Unknown Rx Ondansetron [Zofran ODT TAB] 4 mg PO Q6HR PRN #20 tab.rapdis 08/18/19 Unknown Rx ED Physical Exam - General Limitations: No Limitations General appearance: alert, in no apparent distress - Head Head exam: Present: atraumatic, normocephalic - Eye Eye exam: Present: normal appearance - ENT ENT exam: Present: mucous membranes moist - GI/Abdominal GI/Abdominal exam: Present: soft, normal bowel sounds - Back Exam Back exam: Present: normal inspection, full ROM - Neurological Exam Neurological exam: Present: alert, oriented X3, normal gait - Psychiatric Psychiatric exam: Present: normal affect, normal mood - Skin Skin exam: Present: warm, dry, intact, normal color. Absent: rash ED Medical Decision Making - Lab Data Result diagrams: 09/17/19 16:30 - Medical Decision Making 29-year-old -[place] female who is approximately 15 weeks presents to the emergency room for vaginal spotting and cramping. Patient sta ehsan that she is seeing light pink on underwear tissue Thursday she also complains of constipation. She is 3 para 3 patient is seen by [facility] in [place]. Awaiting ultrasound ED Disposition Clinical Impression: Vaginal spotting, Normal in second trimester Disposition: DC- TO HOME OR SELFCARE Condition: Stable Instructions: (ED), Threatened Miscarriage (ED) Additional Instructions: Make sure to follow up with the MEDICATION COORDINATOR as discussed. Take all your medications as you've been prescribed. If you have any worsening symptoms or develop new symptoms please return to ED immediately. Referrals: PRIMARY CARE, [Referring] - 3-5 Days [facility] [Provider Group] - 3-5 Days Forms: Accompanied Note, Work/School Release Form(ED) <SOHAN DUGAN - Last Filed: 09/17/19 20:35> ED Review of Systems ROS: Stated complaint: 12 WKS /BLEEDING/CRAMPS Other details as noted in HPI ED Course Vital Signs 09/17/19 16:23 Temperature 98.1 F Pulse Rate 101 H Respiratory 13 Rate Blood Pressure 111/69 O2 Sat by Pulse 100 Oximetry ED Medical Decision Making - Lab Data Result diagrams: 09/17/19 16:30 - Radiology Data Radiology results: report reviewed, image reviewed ULTRASOUND OBSTETRIC INDICATION / CLINICAL INFORMATION: Abdominal cramping and spotting. Clinical Gestational Age (GA): 15.5 weeks.days TECHNIQUE: Transabdominal. COMPARISON: Ultrasound dated 08/18/19 FINDINGS: There is a single intrauterine . Biparietal Diameter = 3.2 cm = 16.0 weeks.days Head Circumference = 12.0 cm = 16.0 weeks.days Abdominal Circumference = 10.0 cm = 16.0 weeks.days Femur Length = 2.0 cm = 16.0 weeks.days Average Ultrasound Age (AUA) = 16.0 weeks.days Heart Rate: 157 beats per minute. Estimated Weight in grams (if calculated): 143 g Estimated Weight Growth Percentile (if calculated): 63% Position: transverse. Cervix: closed. Length in cm (if measured): 4.5 Placenta: anterior and free of the os. Amniotic Fluid Volume: Subjectively normal Amniotic Fluid Index (BOOKER) in cm (if calculated): Not calculated. Maternal Adnexa: No significant abnormality. IMPRESSION: 1. Single, living intrauterine with estimated sonographic age of 16.0 weeks.days 2. No acute sonographic abnormality. Signer Name: Shaina Banerjee MD Signed: 09/17/2019 7:36 PM Workstation Name: [id number] Transcribed By: DT Dictated By: Compa Banerjee MD Electronically Authenticated By: Compa Banerjee MD Signed Date/Time: 09/17/191935 - Medical Decision Making Ultrasound report shows no abnormalities. Discussed this with the patient discussed with patient to follow-up with her OB /[facility]. Discussed with patient to avoid intercourse until follow-up with her MEDICATION COORDINATOR. Discussed with with the patient that if symptoms worsen she may return to the ED immediately. Vital signs are normal patient understands instructions and she is to follow-up. Critical care attestation.: If time is entered above; I have spent that time in minutes in the direct care of this critically ill patient, excluding procedure time. ED Disposition Is pt being admited?: No Does the pt Need Aspirin: No Time of Disposition: 20:33
[2019-09-17 16:48] LABS: Basophils % (Auto) 0.6 % (0.0-1.8); Eosinophils # (Auto) 0.3 K/mm3 (0.0-0.4); Eosinophils % (Auto) 5.2 % (0.0-4.3); Hematocrit 32.1 % (30.3-42.9); Hemoglobin 10.7 gm/dl (10.1-14.3); Lymphocytes # (Auto) 1.8 K/mm3 (1.2-5.4); Lymphocytes % (Auto) 27.2 % (13.4-35.0); Mean Corpuscular HGB Conc 33 % (30-34); Mean Corpuscular Volume 88 fl (79-97); Monocytes # (Auto) 0.5 K/mm3 (0.0-0.8); Monocytes % (Auto) 8.3 % (0.0-7.3); Platelet Count 285 K/mm3 (140-440); Red Blood Count 3.65 M/mm3 (3.65-5.03)
--- NOTE | 2019-09-17 19:41 | Ultrasound Report ---
ULTRASOUND OBSTETRIC INDICATION / CLINICAL INFORMATION: Abdominal cramping and spotting. Clinical Gestational Age (GA): 15.5 weeks.days TECHNIQUE: Transabdominal. COMPARISON: Ultrasound dated 08/18/19 FINDINGS: There is a single intrauterine . Biparietal Diameter = 3.2 cm = 16.0 weeks.days Head Circumference = 12.0 cm = 16.0 weeks.days Abdominal Circumference = 10.0 cm = 16.0 weeks.days Femur Length = 2.0 cm = 16.0 weeks.days Average Ultrasound Age (AUA) = 16.0 weeks.days Heart Rate: 157 beats per minute. Estimated Weight in grams (if calculated): 143 g Estimated Weight Growth Percentile (if calculated): 63% Position: transverse. Cervix: closed. Length in cm (if measured): 4.5 Placenta: anterior and free of the os. Amniotic Fluid Volume: Subjectively normal Amniotic Fluid Index (BOOKER) in cm (if calculated): Not calculated. Maternal Adnexa: No significant abnormality. IMPRESSION: 1. Single, living intrauterine with estimated sonographic age of 16.0 weeks.days 2. No acute sonographic abnormality. Signer Name: Shaina Banerjee MD Signed: 09/17/2019 7:36 PM Workstation Name: [id number]
[2019-09-20 12:03] VITALS: BP 98/52
== END 2019-09-17 21:02 | disposition home or self-care (01) ==
LOC: ED 16:17
DX: O20.9 Hemorrhage in early pregnancy, unspecified (principal); O26.892 Other specified pregnancy related conditions, second trimester; O99.282 Endocrine, nutritional and metabolic diseases complicating pregnancy, second trimester; R10.9 Unspecified abdominal pain; E05.90 Thyrotoxicosis, unspecified without thyrotoxic crisis or storm; Z3A.12 12 weeks gestation of pregnancy; Z79.899 Other long term (current) drug therapy; Z98.890 Other specified postprocedural states
CPT/HCPCS: 36415; 76805; 84702; 85025; 86900; 86901